=== PATIENT | female | born 1950 | race Two or more races ===

== ENCOUNTER 2019-08-29 11:51 | Emergency (ER) | payer SELFPAY ==
[~2019-08-29] VITALS: Ht 160 cm; Wt 72.6 kg
[2019-08-29 12:12] VITALS: BP 120/71
--- NOTE | 2019-08-29 12:12 | NUR ---
ED Nurse Note: pt presents to ED c/o R foot pain for 6 days. pt denies any trauma or injury to the area but the right ankle is swollen and it hurts with any weight bearing or walking. pt rates the pain a 9/10 that radiates up her right leg and thigh, the pain is event present at rest. pt states that she went to a clinic and was given motrin and amoxicillin for an infection and that her physician wanted her to get an ultrasound. pt denies any changes in eating, , GI or BM. pt's daughter is at bedside
[2019-08-29 12:55] VITALS: BP 132/65
--- NOTE | 2019-08-29 13:07 | Diagnostic Imaging Report ---
EXAM: XR Right Foot Complete, 3 or More Views CLINICAL HISTORY: PAIN TECHNIQUE: Frontal, lateral and oblique views of the right foot. COMPARISON: No relevant prior studies available. FINDINGS: Bones joints: Osteopenic. Inferior calcaneal spur with small fragmentation. Mild hallux valgus at the first metatarsophalangeal joint with mild degenerative change. No acute fracture. No dislocation. Soft tissues: Unremarkable. No radiopaque foreign body. IMPRESSION: 1. Osteopenic. No acute fracture or malalignment. 2. Inferior calcaneal spur with small fragmentation.
--- NOTE | 2019-08-29 14:02 | Emergency Room Report ---
History of Present Illness General Chief Complaint: Pain Source: Patient Present Illness HPI Patient presents with complaints of right dorsal foot pain reports that it has been ongoing for the past 7 days denies any obvious fall or trauma denies any chest pain denies any calf pain or swelling Patient reports that she saw her primary physician And has been doing better after anti-inflammatories however given some of the residual swelling she was concerned and came to the ER she also had ultrasound ordered for outpatient follow-up However reports that it will be done next week Allergies: Coded Allergies: No Known Allergies (Unverified , 08/29/19) Patient History Past Medical History: see triage record Reviewed Nursing Documentation: PMH: Agreed; PSxH: Agreed Nursing Documentation-PMH Hx Gastrointestinal Problems: Yes - cholecystectomy 1998 Review of Systems All Other Systems: negative except mentioned in HPI Physical Exam Vital Signs Date Time Temp Pulse Resp B/P (MAP) Pulse Ox O2 Delivery O2 Flow Rate FiO2 08/29/19 12:01 99.0 85 18 120/71 (87) 98 Room Air Sp02 EP Interpretation: reviewed, normal General Appearance: well appearing, no apparent distress Head: normocephalic, atraumatic Eyes: bilateral eye PERRL, bilateral eye EOMI ENT: hearing grossly normal, normal pharynx Neck: full range of motion Respiratory: lungs clear Cardiovascular #1: regular rate, rhythm Gastrointestinal: non tender, soft Musculoskeletal: other - Patient has some discomfort to the dorsal right foot minimal swelling is noted however no obvious erythema, neurovascularly intact Neurologic: alert, oriented x3 Skin: other - As above Lymphatic: no adenopathy Medical Decision Making Diagnostic Impression: Primary Impression: foot pain ER Course Patient has some discomfort with full flexion extension of the foot the calf itself is not swollen There are no findings assessed acute DVT patient's discomfort is very localized to the dorsal foot itself X-ray imaging shows some osteopenia and arthritic changes Patient was discussed regarding wearing comfortable shoes And is appropriate for outpatient podiatry follow-up Other X-Ray Diagnostic Results Other X-Ray Diagnostic Results : X-Ray ordered: Right foot # of Views/Limited Vs Complete: 3 View Indication: Pain EP Interpretation: Yes Interpretation: no dislocation, no soft tissue swelling, no fractures, other - Osteopenia osteophyte Impression: Other - Osteopenia osteophyte Electronically Signed by: Ariadne Downey DO Last Vital Signs Date Time Temp Pulse Resp B/P (MAP) Pulse Ox O2 Delivery O2 Flow Rate FiO2 08/29/19 12:55 63 18 132/65 99 Room Air 08/29/19 12:12 99.4 Status: improved Disposition: HOME, SELF-CARE Condition: Improved Referrals: ROCÍO BARRAZA M.D. Patient Instructions: Foot Sprain, Joint Pain Additional Instructions: Patient is provided with the discharge instructions notified to follow up with primary doctor in the next 2-3 days otherwise return to the er with any worsening symptoms. Please note that this report is being documented using [employer] technology. This can lead to erroneous entry secondary to incorrect interpretation by the dictating instrument. Ariadne Downye DO Aug 29, 2019 14:02
== END 2019-08-29 12:55 | disposition home or self-care (01) ==
LOC: EMR 12:50
DX: M79.671 Pain in right foot (principal); Z90.49 Acquired absence of other specified parts of digestive tract
CPT/HCPCS: 96372; 99283; 99284